=== PATIENT | female | born 1950 | race Caucasian/White ===

== ENCOUNTER → 2016-09-07 | Outpatient (CLI) | payer BC ==
--- NOTE | 2016-09-07 18:36 | DI ---
US BRST U/L OR B/L, BREAST TOMOSYNTHESIS DIG U/L, MAMMO U/L DIAGNOSTIC,09/07/2016 12:48 PM: Clinical History: Abnormal mammogram Previous Exam: January 19, 2014 Findings: CC and MLO views are obtained of the left breast as well as breast tomosynthesis performed. Computer- aided diagnostics were also applied. There is a small soft tissue mass measuring 4 mm with dense calcifications most consistent with a deg enerating fibroadenoma. This lies within the superior left breast 3 cm from the nipple. There is heterogeneous breast parenchyma. Sonographic evaluation is obtained of the entire upper left breast, and demonstrate no evidence of ma ss and no abnormal shadowing. This abnormality could not be found on mammogram. Physical exam revealed no palpable abnormality. Impression: New well-circumscribed mass in the left upper breast with coarse calcifications most consistent with a degenerating fibroadenoma. This is probably benign. Patient has a family history of breast cancer with 2 sisters who have had breast cancer in the past. BIRADS-3: Probably benign finding. Initial short-interval follow-up suggested in 6 months. Reading: Probably benign finding - short interval follow-up suggested.
== END ==
LOC: MAMMO 12:43
PROVIDERS: ATTEND Nurse Practitioner Family
DX: R92.8 Other abnormal and inconclusive findings on diagnostic imaging of breast (principal); Z80.3 Family history of malignant neoplasm of breast
CPT/HCPCS: 76641; G0206; G0279